=== PATIENT | female | born 1975 | race Caucasian/White ===

== ENCOUNTER 2019-06-04 09:08 | Day surgery (SDC) | payer OTHER ==
[2019-06-03 14:35] VITALS: BMI 28.2
[2019-06-04 11:22] VITALS: PULSE 54; TEMP 97.7
[2019-06-04 11:53] VITALS: BP 116/65
== END 2019-06-04 11:54 | disposition home or self-care (01) ==
LOC: JASU-ENDO 09:08
PROVIDERS: ATTEND Internal Medicine Gastroenterology
PROC: 0DJD8ZZ Inspection of Lower Intestinal Tract, Via Natural or Artificial Opening Endoscopic (ICD-10-PCS; principal; 2019-06-04 10:00)
DX: K62.5 Hemorrhage of anus and rectum (principal); K62.89 Other specified diseases of anus and rectum; I10 Essential (primary) hypertension; E78.00 Pure hypercholesterolemia, unspecified
CPT/HCPCS: 81025